=== PATIENT | male | born 1950 | race Caucasian/White ===

== ENCOUNTER → 2018-05-06 | Outpatient (CLI) | payer MEDICARE, OTHER ==
[~2018-05-06] MED LIST: ADAL40PE SQ; BUPR100T8 PO; FLUT10SP NS; [UNRECOGNIZED DRUG - CODE] TP
--- NOTE | 2018-05-07 08:18 | KCIC ---
Examination: MRI left shoulder without contrast HISTORY: History of left anterior shoulder pain, fall on ice 10 days back COMPARISON: None available Technique: Multiplanar, multisequence MR imaging of the left shoulder performed without contrast. FINDINGS: The long head of the biceps tendon is within the bicipital groove. The attachment of the long head of the biceps tendon to the superior labral anchor grossly appears intact. There is increased signal identified in the biceps tendon in the intra-articular region likely biceps tendinosis. There is increased T2 signal identified in the subscapularis muscle could be strain with probable partial-thickness tear of the subscapularis tendon. There is increased signal identified in the pectoralis major muscle probably secondary to muscle strain. There is increased signal identified in the supraspinatus, infraspinous tendons likely tendinosis. There is mild increased signal identified in the anterior fibers of the supraspinatus tendon could be partial undersurface tear There is diffuse increased signal identified throughout the labrum likely diffuse labral tearing with a SLAP tear. There is a small multilobulated cystic structure identified abutting the posterior inferior aspect of the labrum measuring 9.5 mm could be a labral cyst secondary to degeneration. Severe degenerative changes glenohumeral joint. Moderate degenerative changes acromioclavicular joint. Acromion is type II. The muscle bulk grossly appears unremarkable. There is obscuration of fat in the rotator interval. IMPRESSION: 1. Increased T2 signal identified in the subscapularis muscle and pectoralis major muscle likely muscle strain with the partial-thickness tearing of the superior fibers of the subscapularis tendon. 2. Diffuse increased signal identified throughout the labrum likely diffuse labral tearing with a SLAP tear. There is a small multiloculated cystic structure measuring 9.5 mm in the posterior inferior labrum probably paralabral cyst secondary to degeneration. 3. Rotator cuff tendinosis. Question small partial undersurface tear of the supraspinatus tendon anteriorly. Biceps tendinosis. 4. Obscuration of fat in the rotator interval. Correlate for adhesive capsulitis. Electronically signed by: Bhavin Lind MD (05/07/2018 8:15 AM) [id number]
== END | disposition home or self-care (01) ==
LOC: KCIC MRI 14:54
DX: M75.02 Adhesive capsulitis of left shoulder (principal); M19.012 Primary osteoarthritis, left shoulder; M75.82 Other shoulder lesions, left shoulder
CPT/HCPCS: 73221